=== PATIENT | female | born 1950 | race Asian ===

== ENCOUNTER 2016-08-26 06:53 | Day surgery (SDC) | payer OTHER ==
[~2016-08-26] VITALS: Ht 157.5 cm; Wt 65.0 kg
[~2016-08-26 06:53] MED LIST: ALEN70TA48 PO; ASPI81 PO; ATOR40TA28 PO; LEVO25TA4 PO
[2016-08-26] MEDS ORDERED: ACETAMINOPHEN 325 MG TABLET PO PRN (07:00)
[2016-08-26] MEDS ORDERED: RINGERS SOLUTION,LACTATED 500 ML IV ONE ×3 (07:00→07:30)
[2016-08-26] MEDS ORDERED: PHENYLEPHRINE HCL 2.5% 2 ML OPHTHALMIC SOLUTION ONE (07:05)
[2016-08-26] MEDS ORDERED: CYCLOPENTOLATE HCL 1% 2 ML OPHTHALMIC SOLUTION ONE (07:05)
[2016-08-26] MEDS ORDERED: TROPICAMIDE 1% 2 ML OPHTHALMIC SOLUTION ONE (07:06)
[2016-08-26] MEDS ORDERED: FLURBIPROFEN SODIUM 0.03% 2.5 ML OPHTHALMIC SOLUTION ONE (07:06)
[2016-08-26] MEDS: PHENYLEPHRINE HCL 2.5% 2 ML OPHTHALMIC SOLUTION OD SCH ×3 (08:04→08:17)
[2016-08-26] MEDS: CYCLOPENTOLATE HCL 1% 2 ML OPHTHALMIC SOLUTION OD SCH ×3 (08:04→08:17)
[2016-08-26] MEDS: FLURBIPROFEN SODIUM 0.03% 2.5 ML OPHTHALMIC SOLUTION OD SCH ×3 (08:04→08:17)
[2016-08-26] MEDS: TROPICAMIDE 1% 2 ML OPHTHALMIC SOLUTION OD SCH ×3 (08:04→08:17)
[2016-08-26] MEDS ORDERED: POVIDONE-IODINE 10% 15 ML SOLUTION UD TP ONE (17:57)
[2016-08-26] MEDS ORDERED: HYALURONATE SOD/CHONDROITIN SOD 0.5 ML VIAL IO ONE (17:57)
[2016-08-26] MEDS ORDERED: MethylPREDNISolone SOD SUCC 40 MG/ML VIAL IVP ONE (17:57)
[2016-08-26] MEDS ORDERED: HYALURONATE SODIUM 12 MG/ML 0.8 ML SYRINGE IO ONE (17:57)
[2016-08-26] MEDS ORDERED: TETRACAINE HCL VISCOUS 0.5% 5 ML OPHTHALMIC SOLUTION OS ONE (17:57)
[2016-08-26] MEDS ORDERED: NEOMYCIN/POLYMYXIN B/DEXAMETH 3.5 GM OPHTHALMIC OINTMENT OS ONE (17:57)
[2016-08-26] MEDS ORDERED: LIDOCAINE HCL/PF 1% 2 ML VIAL IM ONE (17:57)
[2016-08-26] MEDS ORDERED: ACETYLCHOLINE CHLORIDE 1 EA INTRAOCULAR SOLUTION KIT IO ONE (17:57)
[2016-08-26] MEDS ORDERED: MIDAZOLAM HCL 2 MG/2 ML VIAL IVP ONE (23:42)
[2016-08-26] MEDS ORDERED: FentaNYL CITRATE-PF 100 MCG/2 ML VIAL IVP ONE (23:42)
== END 2016-08-26 11:55 | disposition home or self-care (01) ==
LOC: SURGERY 06:53
PROVIDERS: ATTEND Ophthalmology
DX: H25.89 Other age-related cataract (principal); E78.00 Pure hypercholesterolemia, unspecified; E89.0 Postprocedural hypothyroidism; Z79.01 Long term (current) use of anticoagulants; Z98.890 Other specified postprocedural states
CPT/HCPCS: 66982; 93005; C1780; J2250; J3010; J7120; J2920; J3490

== ENCOUNTER 2016-12-02 06:34 | Day surgery (SDC) | payer OTHER ==
[~2016-12-02] VITALS: Ht 154.9 cm; Wt 61.8 kg
[~2016-12-02 06:34] MED LIST changes: +CYCLOPENTOLATE HCL 1% 2 ML OPHTHALMIC SOLUTION ONE; +FLURBIPROFEN SODIUM 0.03% 2.5 ML OPHTHALMIC SOLUTION ONE; +PHENYLEPHRINE HCL 2.5% 2 ML OPHTHALMIC SOLUTION ONE; +RINGERS SOLUTION,LACTATED 500 ML IV ONE; +TROPICAMIDE 1% 2 ML OPHTHALMIC SOLUTION ONE
[2016-12-02] MEDS ORDERED: NEOMYCIN/POLYMYXIN B/DEXAMETH 3.5 GM OPHTHALMIC OINTMENT OD ONE (06:35)
[2016-12-02] MEDS ORDERED: HYALURONATE SODIUM 12 MG/ML 0.8 ML SYRINGE IO ONE (06:35)
[2016-12-02] MEDS ORDERED: TETRACAINE HCL VISCOUS 0.5% 5 ML OPHTHALMIC SOLUTION OD ONE (06:35)
[2016-12-02] MEDS ORDERED: TETRACAINE HCL/PF 0.5% 4 ML OPHTHALMIC SOLUTION OD ONE (06:35)
[2016-12-02] MEDS ORDERED: ACETYLCHOLINE CHLORIDE 1 EA INTRAOCULAR SOLUTION KIT IO ONE (06:35)
[2016-12-02] MEDS ORDERED: POVIDONE-IODINE 10% 15 ML SOLUTION UD TP ONE (06:35)
[2016-12-02] MEDS ORDERED: HYALURONATE SOD/CHONDROITIN SOD 0.5 ML VIAL IO ONE (06:35)
[2016-12-02] MEDS ORDERED: FentaNYL CITRATE-PF 100 MCG/2 ML VIAL IVP ONE (06:35)
[2016-12-02] MEDS ORDERED: LIDOCAINE HCL/PF 1% 2 ML VIAL IM ONE (06:35)
[2016-12-02] MEDS ORDERED: MIDAZOLAM HCL 2 MG/2 ML VIAL IVP ONE (06:35)
[2016-12-02] MEDS ORDERED: ONDANSETRON HCL 4 MG/2 ML VIAL IVP ONE (06:35)
[2016-12-02] MEDS: TROPICAMIDE 1% 2 ML OPHTHALMIC SOLUTION OD SCH ×3 (07:16→07:27)
[2016-12-02] MEDS: PHENYLEPHRINE HCL 2.5% 2 ML OPHTHALMIC SOLUTION OD SCH ×3 (07:16→07:27)
[2016-12-02] MEDS: CYCLOPENTOLATE HCL 1% 2 ML OPHTHALMIC SOLUTION OD SCH ×3 (07:16→07:27)
[2016-12-02] MEDS: FLURBIPROFEN SODIUM 0.03% 2.5 ML OPHTHALMIC SOLUTION OD SCH ×3 (07:16→07:27)
== END 2016-12-02 10:20 | disposition home or self-care (01) ==
LOC: SURGERY 06:34
PROVIDERS: ATTEND Ophthalmology
DX: H25.89 Other age-related cataract (principal); E78.00 Pure hypercholesterolemia, unspecified; E03.9 Hypothyroidism, unspecified; Z79.82 Long term (current) use of aspirin; Z98.42 Cataract extraction status, left eye
CPT/HCPCS: 66982; 93005; C1780; J2250; J2405; J3010; J3490 ×2; J7120